=== PATIENT | male | born 1980 | race Caucasian/White ===

== ENCOUNTER 2019-05-11 12:08 | Emergency (ER) | payer OTHER ==
[~2019-05-11] VITALS: Ht 185.4 cm; Wt 138.3 kg
[~2019-05-11 12:08] MED LIST: ALLEGRA ALLERGY60 MG PO; IMITREX 50 MG T50 MG PO; LEXAPRO 10 MG T10 M1 PO; NAPROSYN500 MG PO; TESTOSTERON100 MG/ML IM; ZANTAC 150MG T150 MG PO
[2019-05-11] MEDS ORDERED: PRILOSEC OTC20 MG PO (12:26)
[2019-05-11] MEDS ORDERED: CYMBALTA20 MG PO (12:26)
[2019-05-11] MEDS ORDERED: BUSPIRONE HCL10 MG PO (12:27)
[2019-05-11 13:08] LABS: ABSOLUTE EOSINOPHILS 0.2 thou/uL (0.0-0.7); ABSOLUTE LYMPHOCYTES 1.8 thou/uL (0.8-5.3); ABSOLUTE MONOCYTES 0.6 thou/uL (0.0-1.2); ABSOLUTE NEUTROPHILS 6.9 thou/uL (1.6-8.1); BASOPHILS 0.3 %; EOSINOPHILS 1.7 %; HEMATOCRIT 46.2 % (42.0-52.0); HEMOGLOBIN 15.6 gm/dL (14.0-18.0); LYMPHOCYTES 18.9 %; MCH 28.8 pg (26.0-34.0); MCHC 33.8 g/dL (28.0-37.0); MCV 85.3 fL (80.0-100.0); MONOCYTES 6.4 %; NUCLEATED RBCS 0 /100WBC; PLATELET COUNT* 267 thou/uL (150-400); POLYS 72.7 %; RBC 5.42 mil/uL (4.50-6.00); RDW-CV 14.1 % (10.5-14.5); WBC 9.4 thou/uL (4.0-11.0)
[2019-05-11 13:14] LABS: CALCIUM 8.5 mg/dL (8.5-10.1); CREATININE 1.4 mg/dL (0.6-1.3); POTASSIUM 3.9 mmol/L (3.5-5.1)
[2019-05-11 13:19] LABS: ALBUMIN 3.8 g/dL (3.4-5.0); TOTAL BILIRUBIN 0.6 mg/dL (<0.1-1.0); TOTAL PROTEIN 7.8 g/dL (6.4-8.2)
[2019-05-11 13:24] LABS: URINE BLOOD NEGATIVE (Negative); URINE CLARITY SL CLOUDY; URINE COLOR YELLOW; URINE GLUCOSE-RANDOM NEGATIVE (Negative); URINE KETONES NEGATIVE (Negative); URINE LEUKOCYTES-REFLEX NEGATIVE (Negative); URINE NITRITE-REFLEX NEGATIVE (Negative); URINE PROTEIN NEGATIVE (Negative); URINE SPECIFIC GRAVITY >= 1.030 (1.005-1.030); URINE UROBILINOGEN 0.2 E.U./dl (0.2-1.0)
[2019-05-11 13:25] LABS: URINE BILIRUBIN 2+ (Negative)
[2019-05-11 13:26] LABS: ICTOTEST (BILI CONFIRMATORY) Negative (Negative)
[2019-05-11 13:29] LABS: SQUAMOUS >10 Many /LPF (0-3); URINE RBC 0-2 Rare /HPF (0-2); URINE WBC-REFLEX 0-5 Rare /HPF (0-5)
[2019-05-11 13:30] LABS: BACTERIA-REFLEX >30 Many /HPF (None Seen); CASTS None Seen /LPF (None Seen); CRYSTALS None Seen /LPF (None Seen); MUCUS >6 Heavy strn/LPF (None Seen)
[2019-05-11] MEDS ORDERED: ONDANSETRON ODT4 MG PO (15:00)
[2019-05-11] MEDS ORDERED: NORCO 5-325 TA1 EAC1 PO (15:00)
[2019-05-11 15:36] VITALS: BP 136/80
[2019-05-11] MEDS ORDERED: DOXYCYCLINE 10100 MG PO (16:19)
== END 2019-05-11 16:34 | disposition home or self-care (01) ==
LOC: M.ERS 12:08
PROVIDERS: Physician Assistant
DX: R10.31 Right lower quadrant pain (principal); R11.2 Nausea with vomiting, unspecified; R19.7 Diarrhea, unspecified; F32.9 Major depressive disorder, single episode, unspecified; Z90.49 Acquired absence of other specified parts of digestive tract; Z88.0 Allergy status to penicillin

== ENCOUNTER → 2020-04-16 | Outpatient (CLI) | payer OTHER ==
[~2020-04-16] MED LIST changes: +BUSPIRONE HCL10 MG PO; +CYMBALTA20 MG PO; +DOXYCYCLINE 10100 MG PO; +NORCO 5-325 TA1 EAC1 PO; +ONDANSETRON ODT4 MG PO; +PRILOSEC OTC20 MG PO
== END ==
LOC: M.LAB 10:46
PROVIDERS: ATTEND Orthopaedic Surgery
DX: Z01.812 Encounter for preprocedural laboratory examination (principal); Z20.828 Contact with and (suspected) exposure to other viral communicable diseases; S82.841A Displaced bimalleolar fracture of right lower leg, initial encounter for closed fracture; X58.XXXA Exposure to other specified factors, initial encounter; Y93.89 Activity, other specified; Y92.89 Other specified places as the place of occurrence of the external cause; Y99.8 Other external cause status